=== PATIENT | female | born 1990 | race African-American/Black ===

== ENCOUNTER 2016-09-06 02:55 | Emergency (ER) | payer OTHER ==
[~2016-09-06] VITALS: Ht 165.1 cm; Wt 68.0 kg
[~2016-09-06 02:55] MED LIST: NASONEX17 GM NASB; ZOFRAN4 M2 PO
[2016-09-06 03:05] VITALS: BP 139/81
--- NOTE | 2016-09-06 03:18 | ED THROAT/DENTAL COMPLAINT ---
History of Present Illness General Chief Complaint: Sore Throat, Dental Pain Stated Complaint: "I THINK I HAVE STREP THROAT" DIFF SPEAKING Source: patient Exam Limitations: no limitations Vital Signs & Intake/Output Vital Signs & Intake/Output Vital Signs Date Time Temp Pulse Resp B/P Pulse O2 O2 Flow FiO2 Ox Delivery Rate 09/06 0305 100.4 116 20 139/81 97 Room Air Allergies Coded Allergies: No Known Allergies (11/11/15) Reconcile Medications Mometasone Furoate (Nasonex) 17 GM SPRAY.PUMP 2 SPRAY NASB DAILY RHINITIS Ondansetron HCl (Zofran) 4 MG TABLET 1 TAB PO TID PRN nausea Ondansetron HCl (Zofran) 4 MG TABLET 1 TAB PO Q6-8P PRN nausea Triage Note: PT TO TRIAGE C/O SORE THROAT, BODY ACHES AND CHILLS. PT PRESENTS WITH HOARSENESS. DENIES SOB. Triage Nurses Notes Reviewed? yes : No Patient currently breastfeeds: No HPI: Patient presents for evaluation of sore throat pain that began gradually yesterday morning. The patient's pain has been a constant soreness, getting worse. Patient has also experienced myalgias but denies fever rash cough or nasal congestion. She tried ibuprofen without relief. When she swallows. Patient denies any known ill contacts. Past History Travel History Traveled to [place] past 21 day No Medical History Any Pertinent Medical History? see below for history Neurological: NONE EENT: NONE Cardiovascular: NONE Respiratory: NONE Gastrointestinal: NONE Hepatic: NONE Renal: NONE Musculoskeletal: NONE Psychiatric: NONE Endocrine: NONE Blood Disorders: NONE Cancer(s): NONE DIRECTOR COMPENSATION/Reproductive: PYLONODAL CYST Other Medical Hx: Hidradenitis Surgical History Surgical History: non-contributory Psychosocial History What is your primary language Nepali Tobacco Use: Never used ETOH Use: denies use Family History Hx Contributory? No Review of Systems Review of Systems Constitutional: Reports: no symptoms. EENTM: Reports: see HPI. Respiratory: Reports: no symptoms. Cardiovascular: Reports: no symptoms. GI: Reports: no symptoms. Genitourinary: Reports: no symptoms. Musculoskeletal: Reports: no symptoms. Skin: Reports: no symptoms. Neurological/Psychological: Reports: no symptoms. Hematologic/Endocrine: Reports: no symptoms. Immunologic/Allergic: Reports: no symptoms. All Other Systems: Reviewed and Negative Physical Exam Physical Exam Mouth/Throat: see below Comments: Gen.: Well-nourished, well-developed, no acute respiratory distress. Head: Normocephalic, atraumatic. Eyes: Normal inspection bilaterally Ears: Normal inspection bilaterally Nose: Normal inspection Throat/mouth : Moist mucosa, erythema of oropharynx with exudates, no uvular deviation or trismus Neck: Supple, full range of motion, no goiter Heart: Regular rate and rhythm, no murmurs rubs or gallops Lungs: Clear to auscultation bilaterally with normal air entry Chest: Nontender Back: Normal range of motion Abdomen: Soft, nontender, nondistended, normal bowel sounds Extremities: Normal range of motion grossly, equal radial pulses, no cyanosis clubbing or edema Neurologic: Cranial nerves grossly intact, speech is clear Skin: warm and dry Psychiatric: Calm, cooperative, no apparent delusions or hallucinations Core Measures ACS in differential dx? No Severe Sepsis Present: No Septic Shock Present: No Progress Differential Diagnosis: epiglottitis, Ludwigs angina, odontogenic abscess, kiki- tonsillar abscess, strep pharyngitis, viral pharyngitis Plan of Care: Orders Procedure Date/time Status THROAT CULTURE W/QUICK STREP 09/06 310 Active Departure Departure Disposition: HOME OR SELF CARE Condition: Stable Clinical Impression Primary Impression: Strep pharyngitis Referrals: PATIENT HAS NO PRIMARY CARE DR (PCP/Family) Additional Instructions: Azithromycin as prescribed. Ibuprofen 600 mg every 6 hours as needed for pain. Add Tylenol with Codeine if necessary. Follow up with your doctor in 72 hours if not improving. Return if any concerns or sudden worsening. Thank you for choosing the [facility] for your care. It was a pleasure to serve you today. Baltazar Bridges M.D. [facility] Departure Forms: Customer Survey General Discharge Information Prescriptions: Current Visit Scripts Azithromycin (Zithromax) 1 DP PO AD #6 TAB 2 the first day followed by 1 for days 2-5 Tylenol With Codeine (Tylenol With Codeine #3 Tablet) 1-2 TAB PO Q6P PRN SORE THROAT PAIN #16 TAB
[2016-09-06] MEDS ORDERED: ZITHROMAX250 M2 PO (03:26)
[2016-09-06] MEDS ORDERED: TYLENOL WITH C1 EACH PO (03:26)
== END 2016-09-06 03:50 ==
LOC: ERH 02:55
DX: J02.0 Streptococcal pharyngitis (principal)
CPT/HCPCS: 87147